=== PATIENT | female | born 1990 | race Hispanic/Latino ===

== ENCOUNTER 2020-06-10 20:21 | Emergency (ER) | payer MEDICAID, OTHER ==
[~2020-06-10 20:21] MED LIST: PREN-154 PO
[2020-06-10 20:52] LABS: BASOPHILS % (AUTO) 0.2 % (0.0-5.0); EOSINOPHILS % (AUTO) 0.6 % (0.0-8.0); HEMATOCRIT 39.2 % (36-48); LYMPHOCYTES % (AUTO) 25.9 % (21.0-51.0); MEAN CORPUSCULAR HEMOGLOBIN 26.8 pg (27.0-33.0); MEAN CORPUSCULAR HGB CONC 33.2 g/dL (32.0-36.0); MEAN CORPUSCULAR VOLUME 80.8 fL (79-99); MONOCYTES % (AUTO) 9.8 % (3.0-13.0); NEUTROPHILS % (AUTO) 63.3 % (40.0-77.0); PLATELET COUNT (AUTO) 233 K/uL (130-400); RED BLOOD CELL COUNT(AUTO) 4.85 MIL/uL (4.00-5.50); RED CELL DISTRIBUTION WIDTH 13.7 % (11.0-15.5); WHITE BLOOD COUNT (AUTO) 9.4 K/uL (4.8-10.8)
[2020-06-10] MEDS ORDERED: KETOROLAC TROMETHAMINE 30MG/ML ONE (20:54)
[2020-06-10] MEDS ORDERED: CYCLOBENZAPRINE HCL 10 MG TABLET ONE (20:55)
[2020-06-10] MEDS ORDERED: SODIUM CHLORIDE 0.9% 1000ML 1,000 ML IV ONE (20:56)
[2020-06-10 20:59] LABS: HCG,QUAL RESULT NEGATIVE (NEGATIVE)
[2020-06-10 21:02] LABS: APPEARANCE,URINE Clear (CLEAR); BILIRUBIN,URINE Negative (NEGATIVE); COLOR,URINE Yellow (YELLOW); GLUCOSE, URINE (UA) Negative (NEGATIVE); KETONES,URINE Negative (NEGATIVE); LEUKOCYTE ESTERASE ,URINE Small (NEGATIVE); NITRATE,URINE Negative (NEGATIVE); OCCULT BLOOD,URINE Trace (NEGATIVE); PH,URINE 6.5 (5.0-8.0); PROTEIN,URINE Negative (NEGATIVE); UROBILINOGEN,URINE 0.2 mg/dL (0.2-1.0)
[2020-06-10 21:03] LABS: CREATININE 0.7 mg/dL (0.5-1.5); POTASSIUM 3.8 mmol/L (3.5-5.1)
[2020-06-10 21:09] LABS: BACTERIA,URINE Few /HPF (None Seen); RBC,URINE None Seen /HPF (0-1)
[2020-06-10 21:13] LABS: ALBUMIN 3.8 g/dL (3.5-5.0); BILIRUBIN,TOTAL 0.3 mg/dL (0.2-1.0)
[2020-06-10] MEDS ORDERED: CEFTRIAXONE SODIUM 1 GM ONE (21:15)
== END 2020-06-10 22:06 | disposition home or self-care (01) ==
LOC: EDH 20:21
DX: G44.209 Tension-type headache, unspecified, not intractable (principal); J18.9 Pneumonia, unspecified organism; Z20.828 Contact with and (suspected) exposure to other viral communicable diseases; G43.909 Migraine, unspecified, not intractable, without status migrainosus
CPT/HCPCS: 36415; 71045; 80053; 81001; 81025; 84702; 85025; 87426; 87804 ×2; 87880; 96365; 96375; 99284; J0696; J1885; J7030; U0003

== ENCOUNTER 2020-06-17 14:08 | Emergency (ER) | payer OTHER ==
[2020-06-17] MEDS ORDERED: KETOROLAC TROMETHAMINE 30MG/ML ONE (14:26)
[2020-06-17] MEDS ORDERED: CYCLOBENZAPRINE HCL 10 MG TABLET ONE (14:27)
[2020-06-17 14:44] LABS: APPEARANCE,URINE Clear (CLEAR); BILIRUBIN,URINE Negative (NEGATIVE); COLOR,URINE Yellow (YELLOW); GLUCOSE, URINE (UA) Negative (NEGATIVE); KETONES,URINE Negative (NEGATIVE); LEUKOCYTE ESTERASE ,URINE Small (NEGATIVE); NITRATE,URINE Negative (NEGATIVE); OCCULT BLOOD,URINE Trace (NEGATIVE); PROTEIN,URINE Negative (NEGATIVE); UROBILINOGEN,URINE 0.2 mg/dL (0.2-1.0)
[2020-06-17 14:45] LABS: BASOPHILS % (AUTO) 0.3 % (0.0-5.0); EOSINOPHILS % (AUTO) 0.2 % (0.0-8.0); LYMPHOCYTES % (AUTO) 32.8 % (21.0-51.0); MEAN CORPUSCULAR HEMOGLOBIN 26.5 pg (27.0-33.0); MEAN CORPUSCULAR HGB CONC 33.5 g/dL (32.0-36.0); MEAN CORPUSCULAR VOLUME 79.2 fL (79-99); NEUTROPHILS % (AUTO) 56.5 % (40.0-77.0); PLATELET COUNT (AUTO) 96 K/uL (130-400); RED BLOOD CELL COUNT(AUTO) 5.43 MIL/uL (4.00-5.50); RED CELL DISTRIBUTION WIDTH 13.5 % (11.0-15.5); WHITE BLOOD COUNT (AUTO) 6.5 K/uL (4.8-10.8)
[2020-06-17 14:49] LABS: HCG,QUAL RESULT NEGATIVE (NEGATIVE)
[2020-06-17 14:50] LABS: BACTERIA,URINE Few /HPF (None Seen)
[2020-06-17 14:51] LABS: MUCUS,URINE Rare LPF (None Seen); SQUAMOUS EPITHELIAL CELL,UR Few /HPF (0-2)
[2020-06-17 14:57] LABS: CREATININE 0.6 mg/dL (0.5-1.5); POTASSIUM 5.3 mmol/L (3.5-5.1)
[2020-06-17 14:58] LABS: ALBUMIN 3.9 g/dL (3.5-5.0); BILIRUBIN,TOTAL 0.4 mg/dL (0.2-1.0); CRP QUANTITATIVE 12.5 mg/L (0.00-9.0); TOTAL PROTEIN, SERUM 8.8 g/dL (6.0-8.3)
== END 2020-06-17 16:11 | disposition home or self-care (01) ==
LOC: EDH 14:08
DX: G44.209 Tension-type headache, unspecified, not intractable (principal); G43.909 Migraine, unspecified, not intractable, without status migrainosus
CPT/HCPCS: 36415; 70450; 80053; 81001; 81025; 85025; 86140; 96361; 96374; 96375; 99284; J1885

== ENCOUNTER 2021-03-09 06:55 | Observation (INO) | payer MEDICAID ==
[~2021-03-09] VITALS: Ht 160 cm; Wt 78.0 kg
[2021-03-09 08:11] LABS: APPEARANCE,URINE CLEAR (CLEAR); BILIRUBIN,URINE NEGATIVE (NEGATIVE); COLOR,URINE YELLOW (YELLOW); GLUCOSE, URINE (UA) NEGATIVE (NEGATIVE); KETONES,URINE NEGATIVE (NEGATIVE); LEUKOCYTE ESTERASE ,URINE TRACE (NEGATIVE); NITRATE,URINE NEGATIVE (NEGATIVE); OCCULT BLOOD,URINE NEGATIVE (NEGATIVE); PROTEIN,URINE NEGATIVE (NEGATIVE); UROBILINOGEN,URINE 0.2 mg/dL (0.2-1.0)
[2021-03-09 08:14] LABS: BACTERIA,URINE Rare /HPF (None Seen); RBC,URINE 0-1 /HPF (0-1); SQUAMOUS EPITHELIAL CELL,UR Few /HPF (0-2); WBC,URINE 0-1 /HPF (0-1)
[2021-03-09 09:12] VITALS: BP 113/71
== END 2021-03-09 08:40 | disposition home or self-care (01) ==
LOC: EDH 06:55 → LDH 06:56
PROVIDERS: ADMIT Specialist; ATTEND Specialist
DX: O62.9 Abnormality of forces of labor, unspecified (principal); Z3A.36 36 weeks gestation of pregnancy
CPT/HCPCS: 59025; 81001; G0378; G0379

== ENCOUNTER 2021-03-24 04:58 | Inpatient (IN) | payer MEDICAID ==
[~2021-03-24] VITALS: Ht 160 cm; Wt 78.9 kg
[2021-03-24 06:00] LABS: APPEARANCE,URINE Clear (CLEAR); BILIRUBIN,URINE Negative (NEGATIVE); COLOR,URINE Yellow (YELLOW); GLUCOSE, URINE (UA) Negative (NEGATIVE); KETONES,URINE Negative (NEGATIVE); LEUKOCYTE ESTERASE ,URINE Trace (NEGATIVE); NITRATE,URINE Negative (NEGATIVE); OCCULT BLOOD,URINE Negative (NEGATIVE); PROTEIN,URINE Negative (NEGATIVE); UROBILINOGEN,URINE 0.2 mg/dL (0.2-1.0)
[2021-03-24] MEDS ORDERED: LACTATED RINGERS 500 ML 500 ML IV PRN (06:00)
[2021-03-24] MEDS ORDERED: PROMETHAZINE HCL 25 MG/ML 1ML AMPULE IM PRN (06:00)
[2021-03-24] MEDS ORDERED: EPHEDRINE SULFATE 50 MG/ML AMPULE IVP PRN (06:00)
[2021-03-24] MEDS ORDERED: MEPERIDINE-PF 50 MG/ML SYG IVP PRN (06:00)
[2021-03-24] MEDS ORDERED: ROPIVACAINE 0.2% 100ML VIAL 100 ML EP PRN (06:00)
[2021-03-24] MEDS ORDERED: NALOXONE HCL 0.4 MG/1 ML ML IV PRN (06:00)
[2021-03-24] MEDS ORDERED: OXYTOCIN-LR 20 UNITS/1000 ML 1,000 ML IV SCH ×2 (06:00→16:30)
[2021-03-24 06:07] LABS: BACTERIA,URINE Rare /HPF (None Seen); MUCUS,URINE Rare LPF (None Seen); RBC,URINE 0-1 /HPF (0-1)
[2021-03-24 06:11] LABS: HEMATOCRIT 31.9 % (36-48); MEAN CORPUSCULAR HEMOGLOBIN 27.6 pg (27.0-33.0); MEAN CORPUSCULAR HGB CONC 33.9 g/dL (32.0-36.0); MEAN CORPUSCULAR VOLUME 81.4 fL (79-99); RED BLOOD CELL COUNT(AUTO) 3.92 MIL/uL (4.00-5.50); RED CELL DISTRIBUTION WIDTH 14.2 % (11.0-15.5); WHITE BLOOD COUNT (AUTO) 10.9 K/uL (4.8-10.8)
[2021-03-24 06:18] VITALS: BP 119/76
[2021-03-24] MEDS: LACTATED RINGERS 1000ML 1,000 ML IV PRN ×2 (06:28→13:50)
[2021-03-24] MEDS: OXYTOCIN-LR 20 UNITS/1000 ML 1,000 ML IV SCH (16:00)
[2021-03-24] MEDS ORDERED: WITCH HAZEL 1 PAD TP PRN (16:30)
[2021-03-24] MEDS ORDERED: ACETAMINOPHEN WITH CODEINE 1 TAB TAB PO PRN (16:30)
[2021-03-24] MEDS ORDERED: DIPH,PERTUSS(ACELL),TET VAC/PF 0.5 ML VIAL IM PRN (16:30)
[2021-03-24] MEDS ORDERED: BENZOCAINE/LANOLIN/ALOE VERA 60 ML AEROSOL TP PRN (16:30)
[2021-03-24] MEDS ORDERED: ACETAMINOPHEN 325 MG TAB PO PRN (16:30)
[2021-03-24] MEDS ORDERED: MEASLES/MUMPS/RUBELLA VACCINE, LIVE 0.5 ML/VIAL SQ PRN (16:30)
[2021-03-24] MEDS ORDERED: LANOLIN 30GM OINTMENT TP PRN (16:30)
[2021-03-24 16:55] VITALS: BP 124/72
[2021-03-24] MEDS: IBUPROFEN 600 MG TABLET PO PRN (18:28)
[2021-03-24 19:10] VITALS: BP 121/73
[2021-03-24] MEDS: DOCUSATE SODIUM 100 MG CAP PO SCH (21:16)
[2021-03-24 23:05] VITALS: BP 126/67
[2021-03-25 03:00] VITALS: BP 99/58
[2021-03-25] MEDS: IBUPROFEN 600 MG TABLET PO PRN (05:35)
[2021-03-25] MEDS: OXYTOCIN-LR 20 UNITS/1000 ML 1,000 ML IV SCH (06:00)
[2021-03-25 06:12] LABS: HEPATITIS Bs ANTIGEN SCREEN P Negative (Negative)
[2021-03-25 07:14] VITALS: BP 119/77
[2021-03-25] MEDS: DOCUSATE SODIUM 100 MG CAP PO SCH (08:48)
[2021-03-25 16:18] VITALS: BP 126/80
== END 2021-03-25 16:50 | disposition home or self-care (01) | DRG 560 ==
LOC: LDH 04:58 → WSH 16:55
PROVIDERS: ADMIT Specialist; ATTEND Specialist
PROC: 10E0XZZ Delivery of Products of Conception, External Approach (ICD-10-PCS; principal; 2021-03-24)
PROC: 10907ZC Drainage of Amniotic Fluid, Therapeutic from Products of Conception, Via Natural or Artificial Opening (ICD-10-PCS; 2021-03-24)
PROC: 3E033VJ Introduction of Other Hormone into Peripheral Vein, Percutaneous Approach (ICD-10-PCS; 2021-03-24)
PROC: 3E0234Z Introduction of Serum, Toxoid and Vaccine into Muscle, Percutaneous Approach (ICD-10-PCS; 2021-03-24)
DX: O80 Encounter for full-term uncomplicated delivery (principal); Z23 Encounter for immunization; Z37.0 Single live birth; Z3A.39 39 weeks gestation of pregnancy
CPT/HCPCS: 36415; 81001; 85027; 86592; 86850; 86900; 86901; 87340; 90715; G0378; J2590; J2795; J7120

== ENCOUNTER 2021-05-18 11:23 | Day surgery (SDC) | payer MEDICAID ==
[2021-05-13 15:06] LABS: BASOPHILS % (AUTO) 0.4 % (0.0-5.0); EOSINOPHILS % (AUTO) 5.3 % (0.0-8.0); HEMATOCRIT 39.4 % (36-48); LYMPHOCYTES % (AUTO) 36.6 % (21.0-51.0); MEAN CORPUSCULAR HGB CONC 32.7 g/dL (32.0-36.0); MEAN CORPUSCULAR VOLUME 82.4 fL (79-99); MONOCYTES % (AUTO) 5.5 % (3.0-13.0); PLATELET COUNT (AUTO) 128 K/uL (130-400); RED BLOOD CELL COUNT(AUTO) 4.78 MIL/uL (4.00-5.50); RED CELL DISTRIBUTION WIDTH 13.9 % (11.0-15.5); WHITE BLOOD COUNT (AUTO) 8.6 K/uL (4.8-10.8)
[2021-05-18] VITALS (15 sets, daily range): BP systolic 124–144; BP diastolic 74–92
[~2021-05-18] VITALS: Ht 160 cm; Wt 70.3 kg
[~2021-05-18 11:23] MED LIST changes: +LACTATED RINGERS 1000ML 1,000 ML IV SCH; -PREN-154 PO
[2021-05-18] MEDS ORDERED: LIDOCAINE PF 100MG/5ML (2%) SYRINGE 5ML ONE (15:03)
[2021-05-18] MEDS ORDERED: MIDAZOLAM HCL 1 MG/ML 2ML VIAL ONE (15:03)
[2021-05-18] MEDS ORDERED: PROPOFOL 10 MG/ML 20ML VIAL IV ONE (15:04)
[2021-05-18] MEDS ORDERED: ROCURONIUM 10MG/1ML SYR 10 MG/ML ML ONE (15:06)
[2021-05-18] MEDS ORDERED: ONDANSETRON 4MG INJ ONE (15:06)
[2021-05-18] MEDS ORDERED: FENTANYL CITRATE PF 50 MCG/1 ML 2ML VIAL ONE (15:10)
[2021-05-18] MEDS ORDERED: MEPERIDINE-PF 25 MG/ML SYG ONE (16:46)
== END 2021-05-18 17:25 | disposition home or self-care (01) ==
LOC: DAH 11:23
PROVIDERS: ATTEND Specialist
DX: Z30.2 Encounter for sterilization (principal); Z20.822 Contact with and (suspected) exposure to COVID-19
CPT/HCPCS: 36415 ×2; 58671; 84703; 85025; 86850 ×2; 86900 ×2; 86901 ×2; 87635; A4215; A4264; A4351; A4930; A6260; C1769 ×2; C9803; J2175; J2250; J2405; J3010; J3490 ×2; J7030; J7120; J2001; J2704